=== PATIENT | male | born 1970 | race Asian ===

== ENCOUNTER 2025-03-18 14:43 | Emergency (ER) | payer OTHER ==
[~2025-03-18] VITALS: Ht 175.3 cm; Wt 87.2 kg
[2025-03-18] MEDS ORDERED: DEXTROSE 50%-WATER 25 GM/50 ML SYRINGE IVP ONE (15:01)
[2025-03-18] MEDS: DEXTROSE 50%-WATER 25 GM/50 ML SYRINGE IVP ONE (15:08)
[2025-03-18 15:28] LABS: BASOPHILS % (AUTO) 0.2 % (0.0-2.0); EOSINOPHILS % (AUTO) 0.4 % (1.0-6.0); HEMATOCRIT 42.6 % (41-53); HEMOGLOBIN 12.4 g/dL (13.5-17.5); LYMPHOCYTES # (AUTO) 0.6 K/uL (1.0-4.8); LYMPHOCYTES % (AUTO) 9.1 % (22.0-44.0); MEAN CORPUSCULAR HEMOGLOBIN 20.7 pg (26.0-34.0); MEAN CORPUSCULAR VOLUME 71 fL (80-100); MONOCYTES # (AUTO) 0.4 K/uL (0.1-1.0); MONOCYTES % (AUTO) 5.9 % (2.0-9.0); NEUTROPHILS # (AUTO) 5.8 K/uL (1.8-7.7); NEUTROPHILS % (AUTO) 84.4 % (40.0-70.0); PLATELET COUNT (AUTO) 140 K/uL (150-450); RED BLOOD CELL COUNT(AUTO) 5.96 MIL/uL (4.50-5.90); RED CELL DISTRIBUTION WIDTH 16.6 % (11.5-14.5); WHITE BLOOD COUNT (AUTO) 6.8 K/uL (4.5-11.0)
[2025-03-18 15:37] LABS: ANION GAP 9 mmol/L (8-16); CALCIUM, TOTAL 9.4 mg/dL (8.8-10.5); CARBON DIOXIDE 26 mmol/L (22-29); CHLORIDE 103 mmol/L (98-107); CREATININE 1.51 mg/dL (0.60-1.30); GLOMERULAR FILTR. RATE CALC 48 mL/min (>60); GLUCOSE,RANDOM 102 mg/dL (70-110); POTASSIUM 4.9 mmol/L (3.5-5.1); SODIUM SERUM 138 mmol/L (136-145); UREA NITROGEN, BLOOD 40 mg/dL (7-18)
[2025-03-18 15:38] LABS: APPEARANCE,URINE CLEAR (CLEAR); BILIRUBIN,URINE NEGATIVE (NEGATIVE); COLOR,URINE LIGHT YELLOW (YELLOW); GLUCOSE, URINE (UA) NEGATIVE (NEGATIVE); KETONES,URINE NEGATIVE (NEGATIVE); LEUKOCYTE ESTERASE ,URINE NEGATIVE (NEGATIVE); NITRATE,URINE NEGATIVE (NEGATIVE); OCCULT BLOOD,URINE NEGATIVE (NEGATIVE); PROTEIN,URINE NEGATIVE (NEGATIVE); SPECIFIC GRAVITIY, URINE 1.012 (1.003-1.030); UROBILINOGEN,URINE <=1.0 mg/dL (<=1.0)
[2025-03-18 15:39] LABS: PROTHROMBIN TIME 10.5 SEC (9.4-11.6)
[2025-03-18 15:42] VITALS: TEMP 98.4
[2025-03-18 15:42] LABS: B-TYPE NATRIURETIC PEPTIDE 104 pg/mL (0-100)
[2025-03-18 15:45] LABS: SALICYLATE 0.7 mg/dL (2.8-20.0)
[2025-03-18 15:49] LABS: CREATINE KINASE, TOTAL ONLY 101 U/L (39-308); TROPONIN I-HIGH SENSITIVITY 79 ng/L (<76)
[2025-03-18 15:53] LABS: ACETAMINOPHEN < 2 mcg/mL (10-30)
[2025-03-18] MEDS: DEXTROSE 10%-WATER 1,000 ML IV ONE (15:55)
[2025-03-18 15:58] LABS: RBC MORPHOLOGY COMMENT ABNORMAL RBC MORPH
[2025-03-18 16:01] LABS: GLUCOMETER DEV NAME(LOC) ERT.7; GLUCOSE,POINT OF CARE 57 MG/DL (70-110)
[2025-03-18] MEDS ORDERED: [UNRECOGNIZED DRUG - CODE] SQ (17:00)
[2025-03-18] MEDS ORDERED: DULO20CA19 PO (17:00)
[2025-03-18] MEDS ORDERED: INSU100I15 SQ (17:00)
[2025-03-18] MEDS ORDERED: GABA-1181 PO (17:00)
[2025-03-18] MEDS ORDERED: GLUC3SPR5 NASAL (17:00)
[2025-03-18] MEDS ORDERED: LOSA-381 PO (17:00)
[2025-03-18] MEDS ORDERED: INSU100I94 SQ (17:00)
[2025-03-18] MEDS ORDERED: CICL6.1H IH (17:00)
[2025-03-18] MEDS ORDERED: AMLO5TAB66 PO (17:00)
[2025-03-18] MEDS ORDERED: PRED5TAB2 PO (17:00)
[2025-03-18] MEDS ORDERED: EZET10TA57 PO (17:00)
[2025-03-18] MEDS ORDERED: TACR1CAP6 PO (17:00)
[2025-03-18 17:29] VITALS: BP 131/69; PULSE 84; RESP 17; O2SAT 96
[2025-03-18 18:05] LABS: GLUCOMETER DEV NAME(LOC) ERT.7; GLUCOSE,POINT OF CARE 87 MG/DL (70-110)
== END 2025-03-18 19:10 | disposition short-term general hospital (02) ==
LOC: EMS 14:43 → EDH 15:42 → UNDOADMIN 15:42 → EMS 19:10 → EDH 19:10 → UNDODISIN 03-20 00:29
DX: T38.3X2A Poisoning by insulin and oral hypoglycemic [antidiabetic] drugs, intentional self-harm, initial encounter (principal); F32.9 Major depressive disorder, single episode, unspecified; E11.9 Type 2 diabetes mellitus without complications; I10 Essential (primary) hypertension; R06.02 Shortness of breath; Z88.8 Allergy status to other drugs, medicaments and biological substances; Z79.4 Long term (current) use of insulin; Y92.89 Other specified places as the place of occurrence of the external cause
CPT/HCPCS: 99291; 96374; 71045; 80048; 82550; 82962; 83880; 84484; 85025; 85610; 85730; 36415; 93005; 81003; G0481; G0480; 99285; G0378